=== PATIENT | male | born 1950 | race Caucasian/White ===

== ENCOUNTER 2016-07-15 08:54 | Day surgery (SDC) | payer OTHER ==
[2016-07-03 14:30] VITALS: Ht 175.3 cm; Wt 82.5 kg
--- NOTE | 2016-07-03 14:56 | PAT Medication Instructions ---
Service Date Jul 03, 2016. Current Home Medication List Nattokinase (Nattokinase), 1 TAB PO HS [Momordica], 15 DROPS PO BID Medication Instructions For Your Scheduled Surgery - Hold the following medication 1 week prior to surgery: Nattokinase (Nattokinase), 1 TAB PO HS - Hold the following medication 1 day prior to surgery: [Momordica], 15 DROPS PO BID *Nothing to eat or drink after midnight If you have any questions please call us at [phone] (Reny Curry PA-C ) or [phone] or [phone]
[2016-07-03 15:18] LABS: BASO % 0.9 %; BASO ABS # 0.05 K/uL (0-0.2); COMPLETE YES; EOS % 3.8 %; HEMATOCRIT 44.2 % (42-52); LYMPH % 27.4 %; LYMPH ABS # 1.51 K/uL (1.2-3.4); MEAN CELL VOLUME 88.6 fL (80-100); MEAN CORPUSCULAR HEMOGLOBIN 31.7 pg (25-34); MEAN CORPUSCULAR HGB CONC 35.7 g/dl (32-36); MEAN PLATELET VOLUME 9.7 fL (7.4-10.4); MONO % 10.9 %; PLATELET COUNT 181 K/uL (130-400); RED BLOOD COUNT 4.99 M/uL (4.7-6.1); WHITE BLOOD COUNT 5.51 K/uL (4.8-10.8)
--- NOTE | 2016-07-03 15:19 | DIAGNOSTIC IMAGING REPORT ---
TWO VIEW CHEST CLINICAL HISTORY: Preoperative examination. FINDINGS: PA and lateral chest radiographs are obtained. No prior studies are available for comparison at the time of dictation. The cardiomediastinal silhouette is unremarkable. There is mild atherosclerotic calcification of the thoracic aorta. The lungs appear hyperinflated and hyperlucent with flattening the diaphragm and increased retrosternal clear space. The appearance suggests emphysema. Nonspecific interstitial thickening is noted. There is no airspace consolidation or pleural effusion. There is no pneumothorax. The skeletal structures appear osteopenic. The bony thorax is intact. IMPRESSION: Findings suggest emphysema. There is no active disease in the chest. Electronically signed by: Jesse Brock M.D. 07/03/2016 3:17 PM Dictated Date/Time: 07/03/2016 3:16 PM
[2016-07-03 15:52] LABS: BUN/CREATININE RATIO 17.9 (10-20); CREATININE 0.75 mg/dl (0.60-1.40); POTASSIUM 4.8 mmol/L (3.5-5.1)
[~2016-07-15] VITALS: Ht 175.3 cm; Wt 82.5 kg
[~2016-07-15 08:54] MED LIST: LACTATED RINGER'S 1000ML 1,000 ML IV SCH; NATT100C PO; [UNRECOGNIZED DRUG - OTHER] PO
--- NOTE | 2016-07-15 10:37 | History & Physical Bridge Note ---
H&P Re-Evaluation Bridge Note: I have examined the patient, reviewed the History & Physical and in the interval since the performance of the History & Physical I have noted the following changes of clinical significance: No changes noted pt marked pt clipped area of surgery at home no obvious skin breakdown
[2016-07-15] MEDS ORDERED: FENTANYL CITRATE INJ 50 MCG/1 ML 2 ML VIAL ONE ×2 (11:09→11:38)
[2016-07-15] MEDS ORDERED: MIDAZOLAM HCL 1 MG/ML 2ML VIAL ONE (11:09)
[2016-07-15] MEDS ORDERED: PROPOFOL IV EMULSION 10 MG/ML 20 ML VIAL IV ONE (11:36)
[2016-07-15] MEDS ORDERED: ROCURONIUM BROMIDE 10 MG/ML 5 ML VIAL ONE (11:36)
[2016-07-15] MEDS ORDERED: LIDOCAINE HCL 2% 2 ML VIAL (20MG/ML) ONE (11:36)
[2016-07-15] MEDS ORDERED: METOPROLOL TARTRATE 1 MG/ML VIAL ONE (11:36)
[2016-07-15] MEDS ORDERED: ONDANSETRON INJ 2 MG/ML 2 ML VIAL ONE ×2 (11:36→12:56)
[2016-07-15] MEDS ORDERED: BACITRACIN 50000 UNIT VIAL IR ONE (12:25)
[2016-07-15] MEDS ORDERED: BUPIVACAINE 0.5 % 5 MG/1 ML MPF 30ML VIAL INJ ONE (12:25)
--- NOTE | 2016-07-15 12:25 | [facility] Post Operative Brief Note ---
Immediate Operative Summary Operative Date Jul 15, 2016. Pre-Operative Diagnosis Left Inguinal Hernia Post-Operative Diagnosis Left Inguinal Herniaindirct and lipoma cord Procedure(s) Performed Open Left Indirect Inguinal Hernia Repair with Mesh Surgeon Dr. Kim Electroencephalographic Technologist Surgeon(s) 0 Estimated Blood Loss 5 ml Findings large lipoma cord and small indirect hernia Specimens none
[2016-07-15] MEDS ORDERED: LACTATED RINGER'S 1000ML 1,000 ML IV SCH (12:26)
[2016-07-15] MEDS ORDERED: OXYC-57 PO (12:28)
[2016-07-15] MEDS ORDERED: ONDANSETRON INJ 2 MG/ML 2 ML VIAL IV PRN ×2 (12:30→13:00)
[2016-07-15] MEDS ORDERED: HYDROmorphone INJ 1 MG/ML SYR IV PRN ×2 (12:30→13:00)
[2016-07-15] MEDS ORDERED: OXYCODONE/ACETAMINOPHEN 5-325 TAB PO PRN (12:30)
--- NOTE | 2016-07-15 12:30 | Discharge Instructions ---
Discharge Instructions Visit Reason for Visit: Left Inguinal Hernia Discharge Discharge Diagnosis / Problem: s/p left open indirect hernia repair with mesh Discharge Goals Goal(s): Decrease discomfort Activity Recommendations Activity Limitations: as noted below Lifting Limitations: no more than 10 pounds Exercise/Sports Limitations: none May Resume Sexual Activity: when tolerated Shower/Bathe: tomorrow Driving or Machine Use: resume 3 days after discharge Anesthesia . Post Anesthesia Instructions: If you have had General Anesthesia or IV Sedation: * Do not drive today. * Resume driving when surgeon permits. * Do not make important decisions or sign legal documents today. * Call surgeon for: 1. Temperature elevations greater than 101 degrees F. 2. Uncontrollable pain. 3. Excessive bleeding. 4. Persistent nausea and vomiting. 5. Medication intolerance (nausea, vomiting or rash). * For nausea and vomiting use only clear liquids such as: tea, soda, bouillon until nausea subsides, then gradually increase diet as tolerated. * If you have any concerns or questions, call your surgeon's office. If physician is unavailable and it is an emergency, call 911 or go to the nearest emergency room. . Instructions / Follow-Up Instructions / Follow-Up call [phone] for any problems return office 1 week ice bag to left groin for 24 hrs Diet Recommendations Recommended Home Diet: resume previous diet Procedures Procedures Performed: Open Left Indirect Inguinal Hernia Repair with Mesh Medical Emergencies . Who to Call and When: Medical Emergencies: If at any time you feel your situation is an emergency, please call 911 immediately. . Non-Emergent Contact . . "Provider Documentation" section prepared by Jules Kim.
[2016-07-15] MEDS ORDERED: HYDROmorphone INJ 1 MG/ML SYR ONE (12:56)
[2016-07-15] MEDS ORDERED: ATROPINE SULFATE 0.1 MG/ML 5ML SYR IV PRN (13:00)
[2016-07-15] MEDS ORDERED: PROMETHAZINE HCL INJ 12.5 MG in SODIUM CHLORIDE 0.9% 50ML 50 ML IV PRN (13:00)
[2016-07-15] MEDS ORDERED: FLUMAZENIL 0.1 MG/1 ML 10 ML VIAL IV PRN (13:00)
[2016-07-15] MEDS ORDERED: LABETALOL HCL IV 5 MG/ML 20ML IV PRN (13:00)
[2016-07-15] MEDS ORDERED: EpHEDrine SULFATE INJ 50 MG/ML AMP IV PRN (13:00)
[2016-07-15] MEDS ORDERED: NALOXONE HCL 0.4 MG/1 ML VIAL/CARP IV PRN (13:00)
--- NOTE | 2016-07-15 13:20 | Anesthesiology Progress Note ---
Anesthesia Post Op Note Date & Time Jul 15, 2016 at 13:20 Vital Signs Pain Intensity: 3 Vital Signs Past 12 Hours Date Time Temp Pulse Resp B/P Pulse Ox O2 Delivery O2 Flow Rate FiO2 07/15/16 13:13 63 20 138/86 98 07/15/16 13:13 63 20 07/15/16 13:08 64 16 135/80 98 07/15/16 13:08 63 16 07/15/16 13:03 63 19 133/80 97 07/15/16 13:03 64 19 07/15/16 13:01 129/79 07/15/16 12:58 61 19 97 07/15/16 12:58 61 19 07/15/16 12:53 63 17 07/15/16 12:53 62 17 127/86 98 07/15/16 12:48 64 17 128/80 100 07/15/16 12:48 63 17 07/15/16 12:43 64 19 07/15/16 12:43 64 19 141/81 100 07/15/16 12:38 68 17 07/15/16 12:38 68 17 134/84 98 07/15/16 12:33 69 21 138/85 99 07/15/16 12:33 37.1 65 16 132/82 99 Mask 10 07/15/16 12:33 69 21 Notes Mental Status: alert / awake / arousable, participated in evaluation Pt Amnestic to Procedure: Yes Nausea / Vomiting: adequately controlled Pain: adequately controlled Airway Patency, RR, SpO2: stable & adequate BP & HR: stable & adequate Hydration State: stable & adequate Anesthetic Complications: no major complications apparent
[2016-07-15 13:25] VITALS: BP 138/84; PULSE 71; TEMP 36.5; O2SAT 98
--- NOTE | 2016-07-15 13:27 | OPERATIVE REPORT ---
DATE OF OPERATION: 07/15/2016 PREOPERATIVE DIAGNOSIS: Left inguinal hernia. POSTOPERATIVE DIAGNOSIS: Left indirect inguinal hernia and lipoma of the cord. PROCEDURE: Left indirect inguinal hernia repair and excision lipoma of the cord with Marlex mesh repair. SURGEON: Dr. Kim. OPERATION AND FINDINGS: SUMMARY: The patient was brought into the operating room theater. The left lower quadrant was prepped with Betadine scrubbing solution and properly draped. We used 0.5% Marcaine without epinephrine to infiltrate 2 fingerbreadths medial anterior superior iliac crest, small skin wheal was raised with more local was used subfascially. An incision was made parallel to the inguinal ligament, deepened through subcutaneous tissue onto the external oblique. More local was used along the course of its fibers. The nerve root was retracted superiorly. As we extended towards the external ring we could see some incarcerated tissue at the external ring. It seemed to be mostly lipomatous tissue. As we elevated this from the cord and its structure the patient did have a large vein on the spermatic cord, but significant amount of fatty tissue extending all the way up to the external ring coming around the internal ring area with lipomatous tissue. A good portion of it we resected, the rest rather than stripped off the cord completely I return it in retroperitoneal closing the internal ring with 3-0 interrupted silk suture. Also of note, the patient had an indirect sac that we identified. The sac was protruding into the canal for approximately 5 cm. It was very friable. We inadvertently got into it and I closed it with 3-0 chromic suture. We then brought in a sheet of Marlex mesh and on-layed it down to the shelving portion of the inguinal ligament, conjoined tendon, symphysis pubis recreating the internal ring that could only accommodate the tip of a hemostat. The cord and nerve was placed along the cord prior to closing the internal ring sufficient enough for the hemostat, then the external oblique was closed along the cord and the mesh completely exteriorizing that from the subcutaneous tissue. This was done with 3-0 silk suture, 2-0 Dexon subcuticular, jeff for skin edges. Dressing was applied. The procedure was tolerated well by the patient. There was minimal blood loss. The patient was taken to recovery room in good condition. I attest to the content of the Intraoperative Record and any orders documented therein. Any exceptio ns are noted below.
[2016-07-15 13:55] VITALS: BP 142/88; PULSE 74; O2SAT 98
[2016-07-15] MEDS ORDERED: OXYCODONE/ACETAMINOPHEN 5-325 TAB ONE (13:58)
[2016-07-15 14:30] VITALS: BP 156/92; PULSE 82; O2SAT 98
== END 2016-07-15 14:50 | disposition home or self-care (01) ==
LOC: C.ACU 08:54
PROVIDERS: ATTEND Surgery
DX: K40.90 Unilateral inguinal hernia, without obstruction or gangrene, not specified as recurrent (principal); D17.6 Benign lipomatous neoplasm of spermatic cord; E11.9 Type 2 diabetes mellitus without complications; Z82.49 Family history of ischemic heart disease and other diseases of the circulatory system; Z68.26 Body mass index [BMI] 26.0-26.9, adult

== ENCOUNTER → 2017-07-08 | Outpatient (CLI) | payer OTHER ==
[~2017-07-08] MED LIST changes: -LACTATED RINGER'S 1000ML 1,000 ML IV SCH
[2017-07-08 12:40] LABS: HEMATOCRIT 44.9 % (42-52); HEMOGLOBIN 15.7 g/dL (14.0-18.0); MEAN CELL VOLUME 89.1 fL (80-100); MEAN CORPUSCULAR HEMOGLOBIN 31.2 pg (25-34); MEAN PLATELET VOLUME 10.2 fL (7.4-10.4); PLATELET COUNT 176 K/uL (130-400); RED CELL DISTRIBUTION WIDTH CV 13.4 % (11.5-14.5); WHITE BLOOD COUNT 4.37 K/uL (4.8-10.8)
[2017-07-08 13:26] LABS: HEMOGLOBIN A1C 5.8 % (4.5-5.6)
[2017-07-08 13:39] LABS: BLOOD UREA NITROGEN 12 mg/dl (7-18); CALCIUM 9.4 mg/dl (8.5-10.1); CARBON DIOXIDE 26 mmol/L (21-32); CREATININE 0.64 mg/dl (0.60-1.40); GLUCOSE 109 mg/dl (70-99); SODIUM 137 mmol/L (136-145)
[2017-07-08 13:47] LABS: ALT/SGPT 26 U/L (12-78); CHOLESTEROL 219 mg/dl (0-200); LDL CHOLESTEROL CALCULATED 145 mg/dl
== END | disposition home or self-care (01) ==
LOC: C.LABMFLN 07:01
PROVIDERS: ATTEND Family Medicine
DX: H61.20 Impacted cerumen, unspecified ear (principal); R73.01 Impaired fasting glucose; E78.00 Pure hypercholesterolemia, unspecified